=== PATIENT | male | born 1965 | race African-American/Black ===

== ENCOUNTER 2023-03-07 13:52 | Inpatient (IN) | payer OTHER ==
[2023-03-07 15:12] VITALS: BMI 25.1
[2023-03-07] MEDS ORDERED: BENZONATATE 200 MG CAPSULE PO PRN (15:55)
[2023-03-07] MEDS ORDERED: POLYETHYLENE GLYCOL (HEALTHYLAX) 3350 17 GM PACKET PO PRN (15:55)
[2023-03-07] MEDS ORDERED: BISMUTH SUBSALICYLATE 524 MG/30 ML PO PRN (15:55)
[2023-03-07] MEDS ORDERED: MAG HYDROX/AL HYDROX/SIMETH 30 ML UNIT-DOSE CUP PO PRN (15:55)
[2023-03-07] MEDS ORDERED: ACETAMINOPHEN 325 MG TABLET (FP) PO PRN (15:55)
[2023-03-07] MEDS ORDERED: NALOXONE HCL (KLOXXADO) 8 MG SPRAY NS PRN (15:55)
[2023-03-07] MEDS ORDERED: guaiFENesin 600 MG TABLET.ER (FP) PO PRN (15:55)
[2023-03-07] MEDS ORDERED: IBUPROFEN 600 MG TABLET (FP) PO PRN (15:55)
[2023-03-07] MEDS ORDERED: ONDANSETRON *ODT* 4 MG TABLET SL PRN (15:55)
[2023-03-07] MEDS ORDERED: IBUPROFEN 400 MG TABLET (FP) PO PRN (15:55)
[2023-03-07] MEDS ORDERED: hydrOXYzine PAMOATE 25 MG CAPSULE (FP) PO PRN (15:55)
[2023-03-07] MEDS ORDERED: LOPERAMIDE HCL 2 MG CAPSULE PO PRN (15:55)
[2023-03-07] MEDS ORDERED: BENZOCAINE/MENTHOL (CHLORASEPTIC ) LOZENGE MM PRN (15:55)
[2023-03-07] MEDS ORDERED: MAGNESIUM HYDROX 2400MG/30ML ORAL SUSPENSION 30 ML CUP PO PRN (15:55)
[2023-03-07] MEDS ORDERED: DICYCLOMINE HCL 10 MG CAPSULE PO PRN (15:55)
[2023-03-07] MEDS ORDERED: NALOXONE HCL 0.4 MG/ML VIAL IM PRN (15:55)
[2023-03-07] MEDS: PRENATAL VITAMINS W/ FOLIC ACID TABLET (FP) PO SCH (17:49)
[2023-03-07] MEDS: THIAMINE HCL 100 MG TABLET (FP) PO SCH (22:20)
[2023-03-07] MEDS: MELATONIN 5 MG TABLETS PO SCH (22:20)
[2023-03-07] MEDS: METHOCARBAMOL 500 MG TABLET PO PRN (22:20)
[2023-03-08] MEDS: PRENATAL VITAMINS W/ FOLIC ACID TABLET (FP) PO SCH (09:17)
[2023-03-08 10:11] LABS: HEMATOCRIT 39.5 % (35.4-49); HEMOGLOBIN 12.8 GM/dL (11.7-16.9); MCH 29.8 pg (25.7-33.7); MCHC 32.4 g/dl (32.0-35.9); MEAN CELL VOLUME 91.8 fl (80-96); MEAN PLT VOLUME 8.9 fl (7.5-11.1); PLATELET COUNT 219 10^3/uL (134-434); RDW 13.3 % (11.9-15.9); WHITE BLOOD COUNT 3.7 K/mm3 (4.0-10.0)
[2023-03-08 10:17] LABS: POTASSIUM 4.1 mmol/L (3.5-5.1)
[2023-03-08 10:27] LABS: ALBUMIN 2.8 g/dl (3.4-5.0); CALCIUM 8.2 mg/dL (8.5-10.1)
[2023-03-08 10:29] LABS: BLOOD UREA NITROGEN 17.8 mg/dL (7-18)
[2023-03-08 10:31] LABS: BILIRUBIN,TOTAL 0.4 mg/dL (0.2-1)
[2023-03-08 10:33] LABS: CREATININE 0.7 mg/dL (0.55-1.3); TOT PROT 5.6 g/dl (6.4-8.2)
[2023-03-08] MEDS: MELATONIN 5 MG TABLETS PO SCH (21:40)
[2023-03-08] MEDS: METHOCARBAMOL 500 MG TABLET PO PRN (21:40)
[2023-03-08] MEDS: THIAMINE HCL 100 MG TABLET (FP) PO SCH (21:40)
[2023-03-09 06:45] VITALS: RESP 18
[2023-03-09 09:24] VITALS: BP 127/66; PULSE 85; TEMP 98.2
[2023-03-09] MEDS: PRENATAL VITAMINS W/ FOLIC ACID TABLET (FP) PO SCH (09:50)
[2023-03-09] MEDS ORDERED: PENICILLIN G BENZATHINE 2,400,000 UNIT/4 ML PFS IM ONE (11:15)
== END 2023-03-09 11:41 | disposition home or self-care (01) | DRG 774 ==
LOC: YASAS 13:52 → Y6N 17:17
PROVIDERS: ADMIT Allergy & Immunology; ATTEND Surgery
PROC: HZ2ZZZZ Detoxification Services for Substance Abuse Treatment (ICD-10-PCS; principal; 2023-03-07)
DX: F14.20 Cocaine dependence, uncomplicated (principal); F10.20 Alcohol dependence, uncomplicated; F25.0 Schizoaffective disorder, bipolar type; Z62.810 Personal history of physical and sexual abuse in childhood; Z86.19 Personal history of other infectious and parasitic diseases; Z87.891 Personal history of nicotine dependence
CPT/HCPCS: 36415; 73130-TC-RT-FY; 80053; 85027; 86593; 86780; 87635; 87811; 93005; 93010